=== PATIENT | female | born 1935 | race Caucasian/White ===

== ENCOUNTER 2024-11-28 19:38 | Emergency (ER) | payer MEDICAID, MEDICARE ==
[2024-11-28 20:02] LABS: BASOPHILS ABSOLUTE AUTO 0.04 10^3/uL (0.00-0.50); BASOPHILS PERCENT AUTO 0.5 % (0-1); EOSINOPHILS ABSOLUTE AUTO 0.25 10^3/uL (0.00-1.50); HEMATOCRIT 35.5 % (37.0-47.0); HEMOGLOBIN 11.2 g/dL (12.0-16.0); IMMATURE GRAN ABSOLUTE AUTO 0.01 10^3/uL (0.00-0.49); IMMATURE GRAN PERCENT AUTO 0.1 % (0.0-4.9); LYMPHOCYTES ABSOLUTE AUTO 2.29 10^3/uL (0.60-5.00); LYMPHOCYTES PERCENT AUTO 27.6 % (24-44); MEAN CORPUSCULAR HEMOGLOBIN 28.9 pg (27.0-32.0); MEAN CORPUSCULAR HGB CONC 31.5 g/dL (32.0-36.0); MEAN CORPUSCULAR VOLUME 91.7 fL (83.0-97.0); MONOCYTES ABSOLUTE AUTO 0.74 10^3/uL (0.00-1.50); MONOCYTES PERCENT AUTO 8.9 % (0-10); NEUTROPHILS ABSOLUTE AUTO 4.97 x10^3/uL (1.80-8.00); NEUTROPHILS PERCENT AUTO 59.9 % (41-71); PLATELET COUNT,PLT 311 10^3/uL (150-400); RED BLOOD CELL COUNT 3.87 x10^6/uL (4.00-5.50); WHITE BLOOD CELL COUNT,WBC 8.3 10^3/uL (4.0-11.0)
[2024-11-28 20:16] LABS: ALBUMIN 3.4 g/dL (3.4-5.0); BILIRUBIN TOTAL 0.8 mg/dL (0.0-1.0); C-REACTIVE PROTEIN 2.26 mg/dL (<=0.50); CREATININE 2.3 mg/dL (0.6-1.0); POTASSIUM,K 4.9 mEq/L (3.5-5.0); PROTEIN TOTAL,TP 8.4 g/dL (6.4-8.2)
[2024-11-28] MEDS: Sodium Chloride 0.9% 500 ML IV SCH (20:17)
[2024-11-28 20:19] LABS: LACTIC ACID 1.3 mmol/L (0.4-2.0)
[2024-11-28 20:25] LABS: EST CRCL DRUG DOSING (CG) 12.14 mL/min
[2024-11-28 21:54] LABS: APPEARANCE,URINE CLEAR (CLEAR); BILIRUBIN,URINE NEGATIVE (NEGATIVE); COLOR,URINE YELLOW (YELLOW); GLUCOSE,URINE NEGATIVE (NEGATIVE); KETONES,URINE NEGATIVE (NEGATIVE); LEUKOCYTE ESTERASE,URINE TRACE (NEGATIVE); NITRITE,URINE NEGATIVE (NEGATIVE); OCCULT BLOOD,URINE NEGATIVE (NEGATIVE); PH,URINE 5.5 (4.5-8.0); PROTEIN,URINE 30 mg/dL (NEGATIVE); UROBILINOGEN,URINE 0.2 EU/dL (0.2-1.0)
[2024-11-28 22:00] LABS: BACTERIA,URINE FEW /HPF (NOT SEEN); RBC,URINE NOT SEEN /HPF (0-5); SQUAMOUS EPITHELIAL CELLS,UR MANY /HPF (NOT SEEN)
[2024-11-28 22:03] LABS: AMPHETAMINES,URINE NEGATIVE (NEGATIVE); BARBITURATES,URINE NEGATIVE (NEGATIVE); BENZODIAZEPINE,URINE NEGATIVE (NEGATIVE); MDMA (ECSTASY), URINE NEGATIVE (NEGATIVE); METHADONE,URINE NEGATIVE (NEGATIVE); METHAMPHETAMINES,URINE NEGATIVE (NEGATIVE); OPIATES,URINE NEGATIVE (NEGATIVE); OXYCODONE,URINE NEGATIVE (NEGATIVE); PHENCYCLIDINE,URINE NEGATIVE (NEGATIVE); TCA,URINE NEGATIVE (NEGATIVE)
[2024-11-28] MEDS: cefTRIAXone 1 GM Vial IVPUSH ONE (22:55)
== END 2024-11-28 23:34 | disposition home or self-care (01) ==
LOC: CC.ED 19:38
DX: N30.00 Acute cystitis without hematuria (principal); R53.83 Other fatigue; N18.4 Chronic kidney disease, stage 4 (severe)
CPT/HCPCS: 36415; 70450; 71045; 80053; 80305-QW; 81001; 83605; 85025; 86140; 87040; 87086; 93005; 93010; 96361; 96374; 99284; 99285-25; J0696; J7040